=== PATIENT | male | born 1955 | race Caucasian/White ===

== ENCOUNTER 2025-10-07 12:43 | Emergency (ER) | payer MEDICARE, BC ==
[~2025-10-07 12:43] MED LIST: Iopamidol-370 76% 500 ML MDV (1 ML CHARGE) ONE
[2025-10-07 15:24] LABS: #Basophils 0.04 10x3/uL (0.0-0.2); #Eosinophils Less than 0.03 10x3/uL (0.0-0.7); #Monocytes 0.78 10x3/uL (0.11-0.59); #Neutrophils 7.13 10x3/uL (1.40-6.50); %Basophils 0.4 % (0.0-1.0); %Eosinophils 0.2 % (0.0-10.0); %Lymphocytes 12.0 % (21.0-51.0); %Monocytes 8.6 % (0.0-10.0); %Neutrophils 78.5 % (42.0-75.0); Hematocrit 50.0 % (42.0-52.0); Hemoglobin 16.2 g/dL (14.0-18.0); Mean Corpuscular Hemoglobin 29.2 pg (27.0-31.0); Mean Corpuscular Volume 90.1 fL (78.0-98.0); Platelet Count 204 10x3/uL (130-400); Red Blood Cell (RBC) Count 5.55 mill/uL (4.70-6.10); White Blood Cell (WBC) Count 9.09 10x3/uL (4.8-10.8)
[2025-10-07 15:37] LABS: INR-International Normal Ratio 1.0; PTT 31.9 sec (22.9-36.1); Prothrombin Time 12.9 sec (12.0-14.7)
[2025-10-07 15:39] LABS: ALT (SGPT) 22 U/L (Less than 45); AST (SGOT) 33 U/L (11-34); Albumin 4.5 g/dL (3.1-4.5); Alkaline Phosphatase 60 U/L (40-110); Anion Gap 17 mmol/L (10-20); BUN (Urea Nitrogen) 13 mg/dL (8.4-25.7); Bilirubin, Total 0.7 mg/dL (0.3-1.2); Calc. Creatinine Clearance 0 mL/min (70-130); Calcium 10.2 mg/dL (7.8-10.44); Carbon Dioxide 25 mmol/L (23-31); Chloride 101 mmol/L (98-107); Globulin 3.4 g/dL (2.4-3.5); Glucose 108 mg/dL (83-110); Potassium 4.6 mmol/L (3.5-5.1); Sodium 138 mmol/L (136-145)
[2025-10-07] MEDS ORDERED: Ondansetron PF 4 MG/2 ML Vial ONE (16:20)
== END 2025-10-07 19:05 | disposition short-term general hospital (02) ==
LOC: ERS 12:43
DX: S12.110A Anterior displaced Type II dens fracture, initial encounter for closed fracture (principal); S00.11XA Contusion of right eyelid and periocular area, initial encounter; S40.211A Abrasion of right shoulder, initial encounter; S50.811A Abrasion of right forearm, initial encounter; V29.99XA Rider (driver) (passenger) of other motorcycle injured in unspecified traffic accident, initial encounter; Y92.410 Unspecified street and highway as the place of occurrence of the external cause
CPT/HCPCS: 70450; 70486; 71045; 71260; 72125; 73030 ×2; 80053; 85025; 85610; 85730; 90471; 90715; 96374; 96375; 96376; 99285; J2270; J2405; Q9967